=== PATIENT | female | born 1975 | race Hispanic/Latino ===

== ENCOUNTER 2021-06-09 16:02 | Emergency (ER) | payer OTHER ==
[2021-06-09] MEDS ORDERED: DEXAMETHASONE 4 MG TAB PO ONE (16:34)
[2021-06-09] MEDS ORDERED: BUTALB/ACETAMINOPHEN/CAFFEINE TAB PO ONE (16:34)
[2021-06-09] MEDS ORDERED: ONDANSETRON 4 MG ODT TAB PO ONE (16:36)
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
[2021-06-09] MEDS ORDERED: KETOROLAC 10 MG TAB PO ONE (20:07)
[2021-06-09 20:16] VITALS: BP 120/69
== END 2021-06-09 20:15 | disposition home or self-care (01) ==
LOC: ED 16:02
DX: R51.9 Headache, unspecified (principal); Z79.899 Other long term (current) drug therapy; V87.7XXA Person injured in collision between other specified motor vehicles (traffic), initial encounter; Y93.89 Activity, other specified; Y92.488 Other paved roadways as the place of occurrence of the external cause; Y99.8 Other external cause status
CPT/HCPCS: 70450; 99284; J8540; Q0162